=== PATIENT | female | born 1980 | race Caucasian/White ===

== ENCOUNTER 2020-06-12 09:44 | Outpatient (CLI) | payer BC ==
--- NOTE | 2020-06-12 10:06 | RAD ---
EXAM: Lumbar spine 3 views: HISTORY: Lumbar radiculopathy, lumbar herniated nucleus pulposus, back pain COMPARISON: None FINDINGS: No evidence for acute fracture or dislocation or significant acute process. No abnormal translation between flexion and extension. Disc spaces are adequately preserved. No evidence for a focal bone lesion. IMPRESSION: Unremarkable spine.
== END 2020-06-12 09:45 | disposition home or self-care (01) ==
LOC: TBSIIMAG 09:44
PROVIDERS: ATTEND Neurological Surgery
DX: M51.26 Other intervertebral disc displacement, lumbar region (principal)
CPT/HCPCS: 72100